=== PATIENT | male | born 1995 | race Two or more races ===

== ENCOUNTER 2019-01-17 20:17 | Emergency (ER) | payer OTHER ==
[~2019-01-17] VITALS: Ht 182.9 cm; Wt 68.0 kg
[2019-01-17 20:21] VITALS: BP 140/84
== END 2019-01-17 20:39 | disposition home or self-care (01) ==
LOC: ER 20:19
DX: F19.10 Other psychoactive substance abuse, uncomplicated (principal); F31.9 Bipolar disorder, unspecified; F41.9 Anxiety disorder, unspecified; Z59.0 Homelessness